=== PATIENT | male | born 1990 | race African-American/Black ===

== ENCOUNTER 2019-12-22 20:42 | Emergency (ER) | payer MEDICAID, OTHER ==
[~2019-12-22] VITALS: Ht 185.4 cm; Wt 90.7 kg
[2019-12-22] MEDS ORDERED: diphenhydrAMINE HCL 50 MG/ML VIAL IM ONE (21:00)
[2019-12-22] MEDS ORDERED: HALOPERIDOL LACTATE INJ 5 MG/ML VIAL IM ONE (21:00)
[2019-12-22] MEDS ORDERED: LORAZEPAM INJ 2 MG/ML VIAL IM ONE (21:00)
[2019-12-22] MEDS ORDERED: HALOPERIDOL LACTATE INJ 5 MG/ML VIAL ONE (21:18)
[2019-12-22] MEDS ORDERED: LORAZEPAM INJ 2 MG/ML VIAL ONE (21:18)
[2019-12-22] MEDS ORDERED: diphenhydrAMINE HCL 50 MG/ML VIAL ONE (21:18)
[2019-12-22 21:46] LABS: BASOPHILS % (AUTO) 0.4 % (0.0-2.0); EOSINOPHILS % (AUTO) 0.5 % (0.0-6.0); HEMATOCRIT 46 % (39-51); HEMOGLOBIN 15.5 g/dL (13.5-17.5); LYMPHOCYTES # (AUTO) 1.4 /CMM (0.8-4.8); LYMPHOCYTES % (AUTO) 14.7 % (20.0-44.0); MEAN CORPUSCULAR HGB CONC 33 g/dl (31.0-36.0); MEAN CORPUSCULAR VOLUME 86 fL (80-96); MONOCYTES # (AUTO) 0.7 /CMM (0.1-1.30); NEUTROPHILS # (AUTO) 7.4 /CMM (1.8-8.9); NEUTROPHILS % (AUTO) 77.4 % (43.0-81.0); PLATELET COUNT (AUTO) 240 /CMM (150-450); RED BLOOD CELL COUNT(AUTO) 5.38 MIL/uL (4.5-6.0); WHITE BLOOD COUNT (AUTO) 9.5 K/uL (4.3-11.0)
[2019-12-22 22:05] LABS: ALBUMIN 4.2 g/dL (3.4-5.0); ALCOHOL, BLOOD < 3 mg/dL (0-0); ALKALINE PHOSPHATASE 61 U/L (46-116); BILIRUBIN,DIRECT 0.1 mg/dL (0.0-0.2); CHLORIDE 103 mmol/L (98-107); CREATININE 1.1 mg/dL (0.6-1.3); POTASSIUM 4.2 mmol/L (3.5-5.1); SODIUM SERUM 139 mmol/L (136-145); TOTAL PROTEIN, SERUM 7.8 g/dL (6.4-8.2); UREA NITROGEN, BLOOD 15 mg/dL (7-18)
[2019-12-22 22:25] LABS: SALICYLATE 1.1 mg/dL (2.8-20.0)
[2019-12-22 22:26] LABS: ACETAMINOPHEN < 2 ug/ml (10-30)
[2019-12-22 22:43] LABS: ALANINE AMINOTRANSFERASE 71 U/L (12-78); ASPARTATE AMINOTRANSFERASE 37 U/L (15-37); BILIRUBIN,TOTAL 0.4 mg/dL (0.2-1.0); CALCIUM, SERUM 9.4 mg/dL (8.5-10.1); CARBON DIOXIDE 28 mmol/L (21-32); GLUCOSE 104 mg/dL (74-106)
[2019-12-22 22:49] LABS: APPEARANCE,URINE Clear (CLEAR); BILIRUBIN,URINE Negative (NEGATIVE); BLOOD, URINE Negative Ery/uL (NEGATIVE); COLOR,URINE Yellow (YELLOW); KETONES,URINE Negative (NEGATIVE); LEUKOCYTE ESTERASE ,URINE Negative (NEGATIVE); NITRITE, URINE Negative (NEGATIVE); PROTEIN,URINE Negative (NEGATIVE); UGLUCOSE Negative (NEGATIVE); UROBILINOGEN,URINE 0.2 EU/dL (0.2)
--- NOTE | 2019-12-22 23:45 | NUR ---
KEENA PRECIADO, IS AT THE BEDSIDE.
--- NOTE | 2019-12-22 23:48 | NUR ---
DR PETERSEN IS AT THE BEDSIDE SPEAKING TO THE PT.
--- NOTE | 2019-12-22 23:48 | NUR ---
PT IS NOT ON A HOLD AT THIS TIME.
[2019-12-23] MEDS ORDERED: ACETAMINOPHEN ES 500 MG TABLET ONE ×2 (00:29→01:15)
--- NOTE | 2019-12-23 00:33 | NUR ---
PT IS C/O A HEADACHE. DR PETERSEN NOTIFIED. NEW VERBAL ORDER FOR 1GM TYLENOL PO GIVEN. PT REC'D MEDICATION ORDERED.
--- NOTE | 2019-12-23 00:34 | NUR ---
PT IS AWAKE AND SITTING UP EATING PUDDING AND DRINKING JUICE.
[2019-12-23] MEDS ORDERED: ACETAMINOPHEN ES 500 MG TABLET PO ONE (01:00)
--- NOTE | 2019-12-23 02:59 | NUR ---
DEANNE SMITH FROM [employer], UNABLE TO VERIFY INSURANCE. SPOKE BRUCE BARNETT FROM [facility] ADMITTING DEPARTMENT AND FAXED INSURANCE ELIGIBILITY CONFIMATION TO [employer] [facility] BUT THEY ARE STILL UNABLE TO VERIFY
--- NOTE | 2019-12-23 04:05 | NUR ---
DEANNE SMITH FROM [employer] INTAKE, UNABLE TO ACCEPT PT DUE TO INSURANCE. MD HAYNES
--- NOTE | 2019-12-23 04:28 | NUR ---
PATIENT IS SLEEPING. EASILY AROUSABLE THROUGH TOUCH AND VOICE. PATIENT IS NOT IN ANY DISTRESS. BREATHING EVENLY AND UNLABORED ON ROOM AIR. CONNECTED TO THE MONITOR. SITTER AT BEDSIDE.
--- NOTE | 2019-12-23 08:34 | NUR ---
OFFICE SWEEPER contacted Rosalina at [facility] intake to f/u regarding pt being accepted to [facility]. Rosalina notified OFFICE SWEEPER she will confirm pt's insurance and f/u with SW. OFFICE SWEEPER updated GRADY Junior with aforementioned information.
--- NOTE | 2019-12-23 10:47 | NUR ---
FORENSIC PHOTOGRAPHER consulted with Hannah in ED admitting and got a copy of pt's insurance information. FORENSIC PHOTOGRAPHER faxed insurance information to Rosalina at [facility].
--- NOTE | 2019-12-23 14:55 | NUR ---
CALLED FOR FOOD TRAY.
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
--- NOTE | 2019-12-23 17:05 | NUR ---
CALLED ROBBIE [phone] LEFT [facility] TO CALL US BACK.
--- NOTE | 2019-12-23 17:59 | NUR ---
MOTHER, DANITZA: [phone]
--- NOTE | 2019-12-23 18:00 | NUR ---
CALLED ROBBIE AGAIN WAS INFORMED THAT [facility] IS COVERING AT THIS TIME. CALLED [facility] [phone] SHE WILL BE HERE IN AN HOUR.
--- NOTE | 2019-12-23 20:34 | NUR ---
PATIENT AMBULATED TO THE RESTROOM WITH A STEADY GAIT.
--- NOTE | 2019-12-23 20:45 | NUR ---
GRADY BELTRAN (CRISIS EVAL) AT BEDSIDE FOR EVALUATION
--- NOTE | 2019-12-23 21:03 | NUR ---
Patient discharged to home in stable condition. Written and verbal after care instructions given. Patient verbalizes understanding of instruction.Pt ambulatory with a steady gait. Pt provided with [facility] resources
[2019-12-23 21:07] VITALS: BP 127/89
== END 2019-12-23 21:07 | disposition home or self-care (01) ==
LOC: ER 20:47
DX: R45.851 Suicidal ideations (principal); R44.0 Auditory hallucinations; R45.1 Restlessness and agitation; Z04.6 Encounter for general psychiatric examination, requested by authority
CPT/HCPCS: 36415; 80048; 80076; 80305; 80307; 80329; 81001; 85025; 96372 ×3; 99285; G0480; J1200; J1630; J2060; 81000-TC